=== PATIENT | male | born 1985 | race Hispanic/Latino ===

== ENCOUNTER 2017-07-22 09:43 | Emergency (ER) | payer SELFPAY ==
[2017-07-22 09:50] VITALS: TEMP 97.9
[2017-07-22] MEDS ORDERED: Oxycodone/Acetaminophen 5/325 mg Tab PO STA (09:59)
[2017-07-22] MEDS ORDERED: Oxycodone/Acetaminophen 5/325 mg Tab ONE (10:01)
[2017-07-22] MEDS ORDERED: Lidocaine 2% Inj (20ml) INFIL ONE (10:29)
[2017-07-22] MEDS ORDERED: Lidocaine 2% Inj (20ml) ONE (10:50)
[2017-07-22] MEDS ORDERED: Morphine 4 MG/ML VIAL ONE ×2 (10:50→11:29)
[2017-07-22 11:37] VITALS: RESP 18
--- NOTE | 2017-07-22 12:22 | C.PDOC ---
Time Seen by Provider: 07/22/17 09:47 Chief Complaint (Nursing): Finger,Hand,&Wrist Past Medical History Vital Signs: Last Vital Signs Temp 97.9 F 07/22/17 09:47 Pulse 89 07/22/17 12:39 Resp 18 07/22/17 12:39 BP 133/67 07/22/17 12:39 Pulse Ox 98 07/22/17 15:23 - Social History Hx Alcohol Use: Yes Hx Substance Use: No - Immunization History Hx Tetanus Toxoid Vaccination: No Hx Influenza Vaccination: No Hx Pneumococcal Vaccination: No ED Course And Treatment O2 Sat by Pulse Oximetry: 100 Orthopedic Time Performed: 12:00 Time Out: Side verified Procedure: Fracture reduction Type: Volar Location: Right, Wrist Consent obtained: Verbal Performed by: Attending Physician Diagnosis: Fracture Type: Closed, Displaced Location: Right Bone: Radius Anesthetic Technique: Local Anesthetic: Lidocaine 1% (hematoma block 7ml) Systemic Analgesia: Morphine (IM) Capillary refill: Normal Distal Sensation: Normal Distal Motor Function: Normal Capillary Refill: Normal Compartment: Normal Distal Sensation: Normal Post-reduction Radiograph: Reduced Complications: some displacement still present Patient tolerated procedure: With difficulty Disposition - Disposition Referrals: Ketty Rojo MD [Staff Provider] - Disposition: HOME/ ROUTINE Condition: STABLE Additional Instructions: Follow up with bone doctor in 1-2 days. Return to ER if symptoms persist or worsen. Elevate the area and ice it. Prescriptions: oxyCODONE/Acetaminophen [Percocet 5/325 mg Tab] 1 tab PO QID PRN #20 tab PRN Reason: Pain Instructions: Wrist Fracture in Adults (ED) Forms: [employer] (Tanzanian) - Clinical Impression Clinical Impression: Wrist fracture, right
[2017-07-22 12:40] VITALS: BP 133/67; PULSE 89
--- NOTE | 2017-07-22 13:30 | C.PDOC ---
History Of Present Illness 32 yo male c/o right wrist pain since this morning. Pt notes that he tripped, put his hand out to break his fall and hurt his wrist at 1am this morning. After pt went to bed, " I didnt think it was that bad" and when he woke up this morning and came to ER. No other trauma. No head injury or LOC. No change in sensation. Right hand dominant. (+)ETOH last night Time Seen by Provider: 07/22/17 09:47 Chief Complaint (Nursing): Finger,Hand,&Wrist History Per: Patient History/Exam Limitations: no limitations Onset/Duration Of Symptoms: Hrs Current Symptoms Are (Timing): Still Present Quality: "Pain" Past Medical History Vital Signs: Last Vital Signs Temp 97.9 F 07/22/17 09:47 Pulse 89 07/22/17 12:39 Resp 18 07/22/17 12:39 BP 133/67 07/22/17 12:39 Pulse Ox 98 07/22/17 13:30 Family History: States: Unknown Family Hx - Social History Hx Alcohol Use: Yes Hx Substance Use: No - Immunization History Hx Tetanus Toxoid Vaccination: No Hx Influenza Vaccination: No Hx Pneumococcal Vaccination: No Review Of Systems Except As Marked, All Systems Reviewed And Found Negative. Physical Exam - Physical Exam Appears: Well, Non-toxic, No Acute Distress Skin: Normal Color, Warm, Dry Head: Atraumatic, Normacephalic Eye(s): bilateral: Normal Inspection, EOMI Nose: Normal Oral Mucosa: Moist Neck: Normal, Normal ROM, Supple Chest: Symmetrical Respiratory: No Accessory Muscle Use Back: Normal Inspection Extremity: No Normal ROM (decreased ROM ), Tenderness (Diffuse at wrist), Capillary Refill (< 2 sec), Swelling Pulses: Left Radial: Normal, Right Radial: Normal Neurological/Psych: Oriented x3, Normal Speech, Normal Sensation ED Course And Treatment O2 Sat by Pulse Oximetry: 98 - Other Rad Wrist XR X-Ray: Interpreted by Me, Viewed By Me Interpretation: Communited fx of distal radius and ulna Wrist Xr s/p reduction X-Ray: Interpreted by Me, Viewed By Me Interpretation: Communited fx of distal radius and ulna, improvement of displacement Progress Note: Percocet and morphine ordered. Closed reduction preformed by Dr Cherry and myself. Volar splint and sling applied by Dr Cherry. Case discussed with Dr Rojo, who requests CT and follow up with him in the office. Pt was given this information and contact information. Discussed strict follow up and signs of concern. Disposition - Disposition Referrals: Ketty Rojo MD [Staff Provider] - Disposition: HOME/ ROUTINE Disposition Time: 13:27 Condition: STABLE Additional Instructions: Follow up with bone doctor in 1-2 days. Return to ER if symptoms persist or worsen. Elevate the area and ice it. Prescriptions: oxyCODONE/Acetaminophen [Percocet 5/325 mg Tab] 1 tab PO QID PRN #20 tab PRN Reason: Pain Instructions: Wrist Fracture in Adults (ED) Forms: [facility] [employer] [facility] (Irish) - Clinical Impression Clinical Impression: Wrist fracture, right
--- NOTE | 2017-07-22 13:54 | RAD ---
PROCEDURE: Right Wrist Radiographs. HISTORY: trauma COMPARISON: None. FINDINGS: BONES: Comminuted displaced fractures at the distal right radius extending to the articular surface is seen. Acute displaced fracture at the styloid process of the distal ulna JOINTS: Normal. No dislocation. SOFT TISSUES: Normal. OTHER FINDINGS: None. IMPRESSION: Acute comminuted distracted fractures at the distal right radius extending to the articular surface of the radiocarpal joint. Mildly displaced fracture of the ulnar styloid process
--- NOTE | 2017-07-22 14:36 | CT ---
PROCEDURE: CT of the right hand right breast without contrast HISTORY: attn wrist, acute fracture trauma. COMPARISON: Comparison is made to the previous x-rays of the right wrist and hand done on the same date. TECHNIQUE: Axial and reformatted coronal and sagittal CT images of the right breast were obtained without IV contrast administration. 3D reconstructed images of the right trace and proximal right hand were also obtained. FINDINGS: Again seen are multiple comminuted displaced fractures at the distal right radius extending to the articular surface. There are small bony fragments seen at the radiocarpal joint. There is also acute displaced fracture at this styloid process of the right ulna. No CT evidence of acute fracture at the right carpal bones. There is no evidence of significant carpal bone dislocation in related to distal radius and ulnar bones. This suspicious for displacement/ dislocation of the pisiform bone. No evidence of significant fluid collection or hematoma at the right trace. No CT evidence of stenosis at the carpal tunnel. IMPRESSION: Comminuted displaced fractures at the distal right radius. Acute fracture at the distal right ulna. No definite CT evidence of acute fractures at the right carpal bone. Suspicious for dislocation/displacement of the BC for will relative to the Triquteral bone
--- NOTE | 2017-07-22 15:21 | RAD ---
PROCEDURE: Right Wrist Radiographs. HISTORY: post reduc COMPARISON: Comparison is made to the previous same-day study. FINDINGS: BONES: The right wrist is seen in cast. Again seen are comminuted displaced and mildly angulated fractures at the distal right radius. Mildly displaced fracture at the distal right radius is also again noted. JOINTS: Normal. No dislocation. SOFT TISSUES: Normal. OTHER FINDINGS: None. IMPRESSION: Post reduction of the previously seen comminuted displaced fracture at the distal right radius and ulna.
[2017-07-25 17:11] VITALS: O2SAT 98
== END 2017-07-22 13:36 | disposition home or self-care (01) ==
LOC: C.ER 09:43
DX: S52.591A Other fractures of lower end of right radius, initial encounter for closed fracture (principal); S52.691A Other fracture of lower end of right ulna, initial encounter for closed fracture; W01.0XXA Fall on same level from slipping, tripping and stumbling without subsequent striking against object, initial encounter; Y92.009 Unspecified place in unspecified non-institutional (private) residence as the place of occurrence of the external cause
CPT/HCPCS: 25605; 73110; 73200; 96372; 99285; J2270

== ENCOUNTER 2017-08-03 08:34 | Day surgery (SDC) | payer OTHER ==
[2017-08-03] MEDS ORDERED: Lactated Ringer's 1,000 ML IV ONE ×2 (11:23→12:58)
[2017-08-03] MEDS ORDERED: ceFAZolin IV 2 gm in Dextrose 2 GM/50 ML BAG IVPB ONE (11:24)
[2017-08-03] MEDS ORDERED: Lidocaine 2% Inj (20ml) ONE (11:24)
[2017-08-03] MEDS ORDERED: Bupivacaine HCl 0.25% PF (10 ml) Inj ONE (11:24)
[2017-08-03] MEDS ORDERED: Midazolam 2 MG/2 ML VIAL ONE (11:29)
[2017-08-03] MEDS ORDERED: Propofol 10 mg/ml Inj (20 ML) ONE (11:30)
[2017-08-03] MEDS ORDERED: Bacitracin 50,000 UNIT in Sodium Chloride 0.9% Irrig 1,000 ML IR SCH (11:30)
[2017-08-03] MEDS ORDERED: Morphine 4 MG/ML VIAL ONE (12:23)
[2017-08-03] MEDS ORDERED: Oxycodone/Acetaminophen 5/325 mg Tab PO PRN (12:42)
--- NOTE | 2017-08-03 13:04 | PCM.SURG1 ---
Surgeon's Initial Post Op Note - Surgeon's Notes Surgeon: Royce Cesar MD Irrigationist Designer: medical student Type of Anesthesia: General Endo Anesthesia Administered By: Dr. Lantigua Pre-Operative Diagnosis: Right distal radius fx Operative Findings: as above Post-Operative Diagnosis: same Operation Performed: Right wrist ORIF Specimen/Specimens Removed: none Estimated Blood Loss: EBL {In ML}: 10 Blood Products Given: N/A Drains Used: No Drains Post-Op Condition: Fair Date of Surgery/Procedure: 08/03/17 Time of Surgery/Procedure: 13:04 ([place] [employer]GEMENT ENGINEER patient report reviewed, no CDS. Patient counseled on the risks of addiction, physical or psychological dependence, and overdose associated with opioid drugs and the danger of taking opioid drugs with alcohol and other central nervous system depressants, and cautioned patient on storage and disposal.)
[2017-08-03] MEDS ORDERED: HYDROmorphone 0.5 mg/0.5 ml ISec ONE (13:11)
[2017-08-03] MEDS: HYDROmorphone 0.5 mg/0.5 ml ISec IVP PRN ×2 (13:11→13:21)
[2017-08-03] MEDS ORDERED: Lactated Ringer's 1,000 ML IV SCH (13:15)
[2017-08-03] MEDS ORDERED: Bupivacaine HCl 0.5% PF (10 ml) Inj ONE (13:19)
--- NOTE | 2017-08-03 13:37 | PCM.ANESB1 ---
Interscalene Block - Brachial Plexus Date of Procedure: 08/03/17 Anesthesiologist: Dev Pre-Procedure Diagnosis: Fracture right radius Post-Procedure Diagnosis: Fracture right radius Procedure Performed: Interscalene Block of Brachial Plexus Right - Procedure Interscalene Block of Brachial Plexus: This procedure was explained to the patient that it is for post-operative pain management. Consent was obtained after a thorough discussion with the patient regarding the benefits and possible complications of local anesthetic block of the Brachial Plexus at the Interscalene area. The patient was brought to the Operating Room and standard monitors were applied. Time out was held with the circulating nurse to confirm the correct surgery and appropriate block. After applying Oxygen by nasal cannula and administering IV Sedation, the patient's head was gently rotated away from the operative shoulder and the anterior scalene groove was carefully palpated. The ultrasound transducer was then applied to the skin in the transverse plane and the brachial plexus was visualized lateral to the carotid artery and in between the anterior and middle scalene muscles. After identification,the anterior lateral portion of the neck was prepped with Betadine solution three times and Lidocaine 1% was injected subcutaneously for topical analgesia. At this point, a # 22 gauge Stimuplex 4 inches insulated needle was inserted into the interscalene groove and directed in a caudal and midline direction. The needle was inserted lateral to the ultrasound transducer in-plane towards the brachial plexus in a [id number] direction. Needle advancement was performed carefully under direct ultrasound visualization. After repeated negative aspiration,20 cc of 0.5% bupivicainewere injected. Under ultrasound guidance the local anesthetics were observed surrounding the roots of the brachial plexus. The needle was removed intact and sterile dressing was applied. The patient had stable vital signs, was conscious and in no apparent distress. The patient tolerated the supraclavicular block of the bracheal plexus well with stable vital signs and was prepared for subsequent surgery.
--- NOTE | 2017-08-03 14:27 | RAD ---
Right wrist radiographs Indication: pt in pacu, s/p wrist ORIF Comparison: Right wrist radiographs performed 07/22/17 Findings: Status post ORIF distal radial comminuted fracture. Images are obtained through overlying cast which obscures osseous detail. Improved anatomic alignment. Ulna styloid fracture deformity re-identified. The remainder the visualized osseous structures appear intact. Impression: Postoperative appearance of the right wrist as above.
[2017-08-03 14:35] VITALS: RESP 16; O2SAT 100
[2017-08-03 14:41] VITALS: BP 132/79; PULSE 82; TEMP 97.2
--- NOTE | 2017-08-04 05:16 | OP ---
PROCEDURE DATE: 08/03/2017 PREOPERATIVE DIAGNOSIS: Displaced right three-part distal radius fracture. POSTOPERATIVE DIAGNOSIS: Displaced right three-part distal radius fracture. PROCEDURE: Open reduction and internal fixation of the right distal radius fracture using Synthes volar locking plate. SURGEON: Marty Cesar MD TYPE OF ANESTHESIA: Regional and supplemental intravenous sedation. BLOOD LOSS: Minimal. DRAINS: None. COMPLICATIONS: None. OPERATIVE FINDINGS: A markedly unstable displaced distal radius fracture, which was amenable to anatomic reduction and fixation. DISPOSITION: Stable to recovery room. DESCRIPTION OF PROCEDURE: The patient was taken to the operating room and placed supine on the operating room table after adequate regional anesthesia. Prophylactic antibiotics were given. A well-padded non-sterile tourniquet was placed on the patient's right upper extremity and entire extremity was then prepped and draped in standard surgical fashion. The proposed incision was marked out with a sterile marking pen. This was a longitudinal incision over the FCR tendon that angled radially as it crossed the proximal wrist flexion crease. An Esmarch bandage was used to exsanguinate the limb and the tourniquet was inflated to 250 mmHg. Esmarch bandage was removed. An incision was made in the skin only. All superficial veins were cauterized. Therefore, the dissection was then carried down to the flexor carpi radialis sheath, which was incised in its radial most border. The FCR tendon was then retracted ulnarly. The floor of the flexor carpi radialis sheath was then incised as well. The flexor pollicis longus was retracted ulnarly and any small branches of the radial artery were cauterized. The pronator quadratus was reflected in an L-shaped fashion. The base of the pronator quadratus flap was on the ulnar side. The fascia was then visualized with a combination of curette and rongeur. All early healing was removed. The fracture fragments were reduced by traction and digital pressure. A Synthes volar locking plate was selected and placed on the volar aspect of the distal radius and was temporarily transfixed with Jozef wires. Imaging intensification revealed an anatomic reduction of the distal radius and excellent placement of the plate. In a sequential fashion, the locking pegs were placed in the distal locking holes of the plate, which was then followed by proximal 3.5-mm screws in a standard AO fashion. Rigid fixation was obtained. Image intensification revealed excellent reduction of the fracture and excellent placement of all screws with no screws penetrating the articular surface. The wrist and forearm were taken through range of motion and full rotation was obtainable and the distal radial ulnar joint was stable. The wound was irrigated with copious amounts of saline. The pronator quadratus was repaired back to its insertion on the radius with 2-0 Vicryl. The tourniquet was deflated. Hemostasis was obtained. The forearm incision was closed with 4-0 nylon interrupted sutures. A sterile dressing was placed consisting of fluffs, 4x4 and a volar plaster splint. The patient tolerated the procedure well and was returned to the recovery room awake, alert, and in excellent condition. Marty Cesar MD
== END 2017-08-03 14:33 | disposition home or self-care (01) ==
LOC: C.SDS 08:34
PROVIDERS: ATTEND Orthopaedic Surgery
DX: S52.501A Unspecified fracture of the lower end of right radius, initial encounter for closed fracture (principal); W18.40XA Slipping, tripping and stumbling without falling, unspecified, initial encounter; Y93.9 Activity, unspecified; Y92.9 Unspecified place or not applicable
CPT/HCPCS: 25609; 64415; 73110; J0690; J1170; J1885; J2250; J2270; J2405; J2704; J3010; J7120